=== PATIENT | female | born 2005 | race African-American/Black ===

== ENCOUNTER 2024-01-06 21:59 | Emergency (ER) | payer OTHER ==
[~2024-01-06] VITALS: Ht 170.2 cm; Wt 79.8 kg
[2024-01-06] MEDS ORDERED: LEVETIRACETAM 500MG TABLET PO ONE (23:00)
[2024-01-07] MEDS: LEVETIRACETAM 500MG TABLET PO NR (00:44)
[2024-01-07] MEDS ORDERED: KEPP500 MT (01:19)
[2024-01-07 01:42] VITALS: BP 123/63; PULSE 67; RESP 18
== END 2024-01-07 01:40 | disposition home or self-care (01) ==
LOC: ER 21:59
DX: R56.9 Unspecified convulsions (principal)
CPT/HCPCS: 99283

== ENCOUNTER 2025-04-03 14:56 | Inpatient (IN) | payer MEDICAID, OTHER ==
[~2025-04-03] VITALS: Ht 167.6 cm; Wt 99.8 kg
[~2025-04-03 14:56] MED LIST: KEPP500 MT
[2025-04-03 14:59] VITALS: O2SAT 98
[2025-04-03 15:50] LABS: BASOPHILS % 0.5 % (0.0-2.0); EOSINOPHILS % 3.3 % (0.0-5.0); HEMATOCRIT. 33.1 % (36.0-48.0); HEMOGLOBIN. 11.0 g/dL (12.0-16.0); LYMPHOCYTES % 24.7 % (20.0-50.0); MEAN PLATELET VOLUME 7.8 fl (7.4-10.4); MONOCYTES % 7.3 % (2.0-8.0); NEUTROPHILS % 64.2 % (40.0-76.0); PLATELET 270 x1000/uL (130-400); RED BLOOD CELL COUNT 3.97 mill/uL (4.2-5.4); RED CELL DISTRIBUTION WIDTH 14.3 % (11.6-14.6)
[2025-04-03] MEDS: LEVETIRACETAM 1000MG PREMIX 100 ML IV ONE (15:59)
[2025-04-03 16:04] LABS: CREATININE 0.8 mg/dL (0.6-1.0); HCG SCREEN NEGATIVE; UREA NITROGEN BLOOD 13 mg/dL (9-23)
[2025-04-03 16:05] LABS: ETHANOL BLOOD < 10 mg/dL (<10)
[2025-04-03 16:06] LABS: ASPARTATE AMINOTRANSFERASE 27 IU/L (<34); BILIRUBIN DIRECT 0.1 mg/dL (<=3.0)
[2025-04-03 16:07] LABS: BILIRUBIN TOTAL 0.3 mg/dL (0.1-1.0); PROTEIN TOTAL 7.1 g/dL (6.0-8.3)
[2025-04-03] MEDS: KETOROLAC 30MG/ML VIAL IV ONE (16:39)
[2025-04-03] MEDS: FAMOTIDINE 20MG/2ML VIAL IV ONE (16:39)
[2025-04-03] MEDS: SODIUM CHLORIDE 0.9% IV ONE (17:00)
[2025-04-03] MEDS: VALPROATE SODIUM IV ONE (17:00)
[2025-04-03] MEDS: LORAZEPAM 2MG/ML UD SYRINGE IV SCH (17:49)
[2025-04-03 20:28] LABS: CLARITY URINE CLEAR (CLEAR); COLOR URINE YELLOW (YELLOW); GLUCOSE URINE NEGATIVE (NEGATIVE); KETONES URINE NEGATIVE (NEGATIVE); LEUKOCYTE ESTERASE URINE TRACE (NEGATIVE); NITRITE URINE NEGATIVE (NEGATIVE); OCCULT BLOOD URINE NEGATIVE (NEGATIVE); PH URINE 6.0 (4.5-8.0); PROTEIN URINE NEGATIVE (NEGATIVE); SPECIFIC GRAVITY URINE 1.013 (1.005-1.030); UROBILINOGEN URINE 0.2 E.U./dL (0.2-1.0)
[2025-04-03 20:29] LABS: BACTERIA URINE RARE; RBC URINE NONE SEEN /hpf (0-2); SQUAMOUS EPITHELIAL CELL URINE RARE /lpf (RARE/1+)
[2025-04-03 20:50] LABS: *AMPHETAMINES SCREEN URINE NEGATIVE (NEGATIVE); *BENZODIAZEPINES SCREEN URINE NEGATIVE (NEGATIVE)
[2025-04-03 20:51] LABS: *BARBITURATES SCREEN URINE NEGATIVE (NEGATIVE); *COCAINE SCREEN URINE NEGATIVE (NEGATIVE); CANNABINOID URINE SCREEN NEGATIVE (NEGATIVE); ECSTASY MDMA SCREEN URINE NEGATIVE (NEGATIVE); METHADONE URINE SCREEN NEGATIVE (NEGATIVE); OPIATES URINE SCREEN NEGATIVE (NEGATIVE); PHENCYCLIDINE URINE SCREEN NEGATIVE (NEGATIVE)
[2025-04-03] MEDS ORDERED: ONDANSETRON HCL 4MG/2ML INJ IV PRN (21:45)
[2025-04-03] MEDS ORDERED: NALOXONE HCL 0.4MG/ML VIAL IV PRN (22:00)
[2025-04-03 22:07] LABS: TROPONIN I HIGH SENSITIVITY < 4 ng/L (3.0-34)
[2025-04-03] MEDS: HYDROCODONE/ACETAMINOPHEN 5/325MG TABLET PO PRN (22:36)
[2025-04-04] VITALS (9 sets, daily range): BP systolic 112–135; BP diastolic 52–72; PULSE 45–80; RESP 16–20; TEMP 36.4–37.3; O2SAT 95–100
[2025-04-04] MEDS: PANTOPRAZOLE 40MG DR TABLET PO SCH (07:01)
[2025-04-04] MEDS: LEVETIRACETAM 500MG TABLET PO SCH (08:27)
[2025-04-04] MEDS: LORAZEPAM 2MG/ML UD SYRINGE IV PRN (11:22)
[2025-04-04 13:08] LABS: HEPATITIS C AB NON REACTIVE (Neg) (Negative)
[2025-04-04] MEDS ORDERED: ONDANSETRON HCL 4MG/2ML INJ IV PRN (19:00)
[2025-04-04] MEDS: CEFTRIAXONE 1GM/50ML 50 ML IV SCH (21:55)
[2025-04-05] VITALS: BP 100/70; PULSE 81; RESP 18; TEMP 36.7; O2SAT 97
[2025-04-05 04:00] VITALS: BP 101/59; PULSE 50; RESP 18; TEMP 37.1; O2SAT 97
[2025-04-05 07:43] LABS: BASOPHILS % 0.4 % (0.0-2.0); EOSINOPHILS % 3.7 % (0.0-5.0); HEMATOCRIT. 34.6 % (36.0-48.0); HEMOGLOBIN. 11.6 g/dL (12.0-16.0); LYMPHOCYTES % 15.9 % (20.0-50.0); MEAN PLATELET VOLUME 8.5 fl (7.4-10.4); MONOCYTES % 8.2 % (2.0-8.0); NEUTROPHILS % 71.8 % (40.0-76.0); PLATELET 245 x1000/uL (130-400); RED BLOOD CELL COUNT 4.13 mill/uL (4.2-5.4); RED CELL DISTRIBUTION WIDTH 14.3 % (11.6-14.6)
[2025-04-05 08:00] VITALS: BP 116/64; PULSE 56; RESP 16; TEMP 36.2; O2SAT 97
[2025-04-05 08:02] LABS: CREATININE 0.9 mg/dL (0.6-1.0); UREA NITROGEN BLOOD 11 mg/dL (9-23)
[2025-04-05] MEDS ORDERED: PANTOPRAZOLE SODIUM 40 MG/VIAL IV SCH (09:00)
[2025-04-05 12:00] VITALS: BP 128/66; PULSE 45; PULSE 81; RESP 15; TEMP 36.3; O2SAT 96
[2025-04-05] MEDS: KETOROLAC 30MG/ML VIAL IV PRN (15:55)
[2025-04-05 16:00] VITALS: BP 117/64; PULSE 41; RESP 18; TEMP 36.2; O2SAT 97
[2025-04-05] MEDS: ACETAMINOPHEN 325MG TABLET PO PRN (19:43)
[2025-04-05 20:00] VITALS: BP 103/61; PULSE 82; RESP 17; TEMP 36.4; O2SAT 100
[2025-04-06] VITALS: BP 100/51; PULSE 53; RESP 17; TEMP 36.4; O2SAT 100
[2025-04-06 04:00] VITALS: BP 104/58; PULSE 54; RESP 17; TEMP 36.4; O2SAT 99
[2025-04-06 07:46] VITALS: BP 119/49; PULSE 78; RESP 18; TEMP 36.7; O2SAT 100
[2025-04-06 08:07] LABS: BASOPHILS % 0.6 % (0.0-2.0); EOSINOPHILS % 3.9 % (0.0-5.0); HEMATOCRIT. 31.9 % (36.0-48.0); HEMOGLOBIN. 10.7 g/dL (12.0-16.0); LYMPHOCYTES % 13.8 % (20.0-50.0); MEAN PLATELET VOLUME 8.6 fl (7.4-10.4); MONOCYTES % 6.7 % (2.0-8.0); NEUTROPHILS % 75.0 % (40.0-76.0); PLATELET 237 x1000/uL (130-400); RED BLOOD CELL COUNT 3.81 mill/uL (4.2-5.4); RED CELL DISTRIBUTION WIDTH 14.3 % (11.6-14.6)
[2025-04-06 08:21] LABS: CREATININE 0.7 mg/dL (0.6-1.0)
[2025-04-06 08:22] LABS: UREA NITROGEN BLOOD 14 mg/dL (9-23)
[2025-04-06] MEDS: DIVALPROEX SODIUM 125MG SPRINKLE CAPSULE PO SCH (09:10)
[2025-04-06 12:00] VITALS: BP 116/31; PULSE 60; RESP 18; TEMP 36.6; O2SAT 100
[2025-04-06 16:00] VITALS: BP 119/61; PULSE 61; RESP 18; TEMP 36.6; O2SAT 100
[2025-04-06 17:12] VITALS: BP 119/61; PULSE 57; RESP 18; TEMP 97.8
== END 2025-04-06 19:13 | disposition home or self-care (01) | DRG 53 ==
LOC: ER 14:56 → 8WST 17:24 → EDBEDREQTM 17:27 → EDBEDREQ 17:27 → ENRESERV 18:12
PROVIDERS: ADMIT Internal Medicine; ATTEND Internal Medicine
DX: G40.901 Epilepsy, unspecified, not intractable, with status epilepticus (principal); D72.829 Elevated white blood cell count, unspecified; N39.0 Urinary tract infection, site not specified; R00.1 Bradycardia, unspecified; Z79.899 Other long term (current) drug therapy
CPT/HCPCS: 36415; 71045; 74018; 74176; 76700; 80048; 80076; 80305; 80320; 80339; 81003; 83735; 84484; 84703; 85025; 86705; 87340; 93005; 99291; J0696; J1308; J1885; J1953; J2060; J2405; J3490; J7050; G0480